=== PATIENT | male | born 1990 | race African-American/Black ===

== ENCOUNTER 2021-06-13 12:34 | Emergency (ER) | payer MEDICAID ==
[~2021-06-13] VITALS: Ht 180.3 cm; Wt 83.9 kg
[2021-06-13] MEDS ORDERED: IBUPROFEN 600 MG TABLET PO ONE (12:45)
[2021-06-13] MEDS ORDERED: PENI500T PO (12:52)
[2021-06-13] MEDS ORDERED: KETOROLAC TROMETHAMINE 15 MG INJ ONE (13:00)
[2021-06-13] MEDS ORDERED: IBUPROFEN 600 MG TABLET ONE (13:00)
[2021-06-13] MEDS ORDERED: KETOROLAC TROMETHAMINE 15 MG INJ IM ONE (13:00)
--- NOTE | 2021-06-13 13:03 | NUR ---
Provider spoke with pt about elevated BP. Will discuss with his PCP after taking care of dental work. Patient discharged to home in stable condition. Written and verbal after care instructions given. Patient verbalizes understanding of instructions. Stressed follow up or return to ER for worsening s/s.
[2021-06-13 13:04] VITALS: BP 150/94
== END 2021-06-13 13:05 | disposition home or self-care (01) ==
LOC: ER 12:37
DX: K03.81 Cracked tooth (principal); K04.7 Periapical abscess without sinus
CPT/HCPCS: 96372; 99283; J1885; A4663